=== PATIENT | male | born 1965 | race African-American/Black ===

== ENCOUNTER 2016-08-31 12:34 | Inpatient (IN) | payer OTHER ==
--- NOTE | ~2016-08-31 | DS ---
Unit #: [id number] #: [id number] [facility]: [facility] [id number] [facility] [address] [place] [address] [id number] MR#: [id number] NAME: ZAK CONNER ROOM: [facility]8 Age: 50 Sex: M Admission Date: 08/31/2016 : 1965 Discharge Date: Attending Physician: Tierra Rocha M.D. Primary Care Physician: Generic Doctor Not In System DISCHARGE SUMMARY IDENTIFYING DATA Mr. Bee is a 50-year-old single male, who is a resident of [place], [place], and was self-referred to the hospital on voluntary basis. DISCHARGE DIAGNOSES Psychiatric: Major depressive disorder, recurrent, moderate, without psychotic features; cocaine dependence, moderate. Medical: History of colon cancer, hypertension. Stressors: Moderate psychosocial stressors. HISTORY OF PRESENT ILLNESS Please see initial psychiatric evaluation for details. PAST PSYCHIATRIC HISTORY Please see initial psychiatric evaluation for details. PAST MEDICAL HISTORY Please see initial psychiatric evaluation for details. HOSPITAL COURSE The patient was admitted to the adult psychiatric unit at [facility] and was oriented to the hospital environment. Routine p.r.n. medications were initiated, and he was started back on his home medications and medications were adjusted. He was complaining of persistent depressive symptoms and was initially on Wellbutrin which was then changed to Prozac on his own request and Seroquel was maintained and gradually titrated up to 300 mg at bedtime with good tolerability and therapeutic response followed by which, it was decided that he will be discharged home and will continue treatment on an outpatient basis. DISCHARGE MEDICATIONS Prozac 20 mg a day for depression, Seroquel 300 mg at bedtime for depression. DISCHARGE CONDITION Stable. PROGNOSIS Fair. Dictated by... Tierra Rocha M.D. Unit #: [id number] #: [id number] Patient: ZAK CONNER IAA/modl TD: 09/06/2016 07:00 JOB #: [id number] DISCHARGE SUMMARY Page 1 of 1 X Tierra Rocha MD X DISCHARGE SUMMARY
--- NOTE | ~2016-08-31 | HP ---
Unit #: [id number] #: [id number] Patient: ZAK CONNER [id number] [facility] [address] [place] [address] [id number] I MR#: [id number] NAME: ZAK CONNER ROOM: [facility] Age: 50 Sex: M Admission Date: 08/31/2016 : 1965 Attending Physician: Tierra Rocha M.D. Admitting Physician: Tierra Rocha M.D. Primary Care Physician: Generic Doctor Not In System HISTORY AND PHYSICAL HISTORY OF PRESENT ILLNESS The patient is a 50-year-old man who has been admitted to [facility] for depression and suicidal ideations. PAST MEDICAL HISTORY 1. History of DVT and PE, currently on Xarelto. 2. Hypertension. 3. Pancreatitis. 4. Gastritis. 5. Crohn's disease. 6. PTSD. PAST SURGICAL HISTORY 1. Previous EGD and colonoscopy. 2. Appendectomy. 3. 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 ALLERGIES No known allergies. HOME MEDICATIONS 1. Lisinopril 20 mg 3 in the morning. 2. Xarelto 20 mg p.o. daily. FAMILY HISTORY Diabetes and hypertension. SOCIAL HISTORY The patient endorses tobacco and crack use. REVIEW OF SYSTEMS CONSTITUTIONAL: No fever or chills. HEENT: Denies sore throat, ear pain, or runny nose. CARDIOVASCULAR: Denies chest pain, irregular heart rate, or palpitations. Denies shortness of breath or cough. No hemoptysis. GI: Denies nausea, vomiting, diarrhea, or chronic constipation. ENDOCRINE: Denies increased thirst or urination. Denies recent weight loss or gain. : Denies history of dysuria, frequency, or hematuria. SKIN: Denies any rashes. HEMATOLOGIC: Denies history of increased bleeding or bruising. MUSCULOSKELETAL: Denies any hot, swollen joints. No generalized pain. NEUROLOGIC: The patient denies problems with speech or vision, numbness, Unit #: [id number] #: [id number] Patient: ZAK CONNER or tingling. Denies loss of bowel or bladder control. PHYSICAL EXAMINATION GENERAL: The patient is awake, in no acute distress. VITAL SIGNS: Temperature 98.3, heart rate 62, respirations 16, blood pressure 129/78. He is 5 feet 10 inches and weighs 205 pounds. HEENT: Head is atraumatic, normocephalic. Pupils are equal, round, and reactive. Extraocular movements are intact. No discharge from ears or nose. NECK: Supple. Trachea is midline. HEART: Regular rate and rhythm. LUNGS: Clear. ABDOMEN: Soft, nontender. : Not done. SKIN: Warm, dry, and intact. EXTREMITIES: No clubbing or cyanosis. (1) __ partial amputation on the left. NEUROLOGIC: Cranial nerves II through XII intact, within normal limits. No focal deficits. Sensory and motor function grossly normal. Coordination: Gait normal. Deep tendon reflexes intact. IMPRESSION Psychiatric admission. RECOMMENDATIONS PSYCHIATRIC: Reviewed per psychiatrist. MEDICAL: I see no contraindication to patient participating in the facility activities. MEDICAL PROGNOSIS Fair. MEDICAL CONDITION Stable. Dictated by... Gunjan Weir A.P.R.N. for Cecelia Hernández M.D. AM/laura TD: 09/01/2016 14:04 JOB #: [id number] HISTORY AND PHYSICAL Page 1 of 1 X Gunjan Weir APRN X HISTORY AND PHYSICAL
--- NOTE | ~2016-08-31 | PN ---
Unit #: [id number] #: [id number] Patient: ZAK CONNER [id number] [facility] [address] [place] [address] [id number] I MR#: [id number] NAME: ZAK CONNER ROOM: [facility] Age: 50 Sex: M Admission Date: 08/31/2016 : 1965 Attending Physician: Tierra Rocha M.D. Admitting Physician: Tierra Rocha M.D. Primary Care Physician: Tierra Doctor Not In System [facility] PROGRESS NOTES DATE 09/01/2016 DISCUSSION Mr. Conner is a 50-year-old white male with mood disorder who was seen today and chart was reviewed and case was discussed with the staff. He has been anxious, withdrawn, depressed and rather seclusive to himself and has been expressing feelings of hopelessness and helplessness. Meanwhile, he has been taking medications and tolerating them fairly well with no reported side effects. MENTAL STATUS EXAMINATION Middle-aged white male who was casually dressed with fair personal hygiene and appears to be in no acute distress or discomfort. He was awake and alert on interaction with intact orientation. His mood was anxious with congruent affect. He reports having suicidal ideation but denies any homicidal ideation and also denies any auditory or visual hallucinations. His insight and judgement remains slightly impaired. TREATMENT PLAN 1. Will continue his current medications and treatment protocol. Will monitor his and make further adjustments as needed. 2. Will continue to follow up. Dictated by... Matteo Restrepo/gerhard TD: 09/01/2016 22:13 JOB #: [id number] Unit #: [id number] #: [id number] Patient: ZAK CONNER PROGRESS NOTES Page 1 of 1 X Tierra Rocha MD PROGRESS NOTE
--- NOTE | ~2016-08-31 | DS ---
Unit #: [id number] #: [id number] Patient: ZAK CONNER [id number] [facility] [address] [place] [address] [id number] I MR#: [id number] NAME: ZAK CONNER ROOM: [facility]208 Age: 50 Sex: M Admission Date: 08/31/2016 : 1965 Discharge Date: 09/07/2016 Attending Physician: Tierra Rocha M.D. Primary Care Physician: Generic Doctor Not In System DISCHARGE SUMMARY ADDENDUM Mr. Conner is a 50-year-old male, who was scheduled to be discharged yesterday on 09/06/2016; however, discharge planning had to be canceled after the patient stated that he was not feeling safe and comfortable and had a place to go the next day and as such, he was kept on the unit until the next day when he felt further safe and comfortable, and it was decided that he will be discharged home and will continue treatment on an outpatient basis. DISCHARGE CONDITION Stable. PROGNOSIS Fair. Dictated by... Matteo Restrepo/cris TD: 09/07/2016 06:58 JOB #: [id number] DISCHARGE SUMMARY Page 1 of 1 X Tierra Rocha MD X DISCHARGE SUMMARY
--- NOTE | ~2016-08-31 | PN ---
Unit #: [id number] #: [id number] Patient: ZAK CONNER [id number] [facility] [address] [place] [address] [id number] I MR#: [id number] NAME: ZAK CONNER ROOM: [facility] Age: 50 Sex: M Admission Date: 08/31/2016 : 1965 Attending Physician: Tierra Rocha M.D. Admitting Physician: Tierra Rocha M.D. Primary Care Physician: Tierra Doctor Not In System [facility] PROGRESS NOTES DATE OF SERVICE: 09/02/2016 SUBJECTIVE Mr. Conner is a 50-year-old male with mood disorder, who was seen today and chart was reviewed and case was discussed with the staff. He was seen to be anxious, withdrawn, depressed, and rather seclusive to himself. Meanwhile, he has been cooperative with treatment recommendations and has been taking the medications and tolerating them fairly well with no reported side effects. MENTAL STATUS EXAMINATION Middle-aged male, who was casually dressed with fair personal hygiene, appears to be in no acute distress or discomfort. He was awake and alert on interaction with intact orientation. His mood was anxious and depressed with a congruent affect. He denies any suicidal or homicidal ideations. His insight and judgment remain slightly impaired. TREATMENT PLAN 1. We will continue him on his current treatment protocol. We will monitor his response to medications and make further adjustments as needed. 2. We will continue to follow up. Dictated by... Matteo Restrepo/cris TD: 09/03/2016 13:57 JOB #: [id number] [facility] PROGRESS NOTES Page 1 of 1 X Tierra Rocha MD X PROGRESS NOTE
--- NOTE | ~2016-08-31 | PN ---
Unit #: [id number] #: [id number] Patient: ZAK CONNER [id number] [facility] [address] [place] [address] [id number] I MR#: [id number] NAME: ZAK CONNER ROOM: [facility]210 Age: 50 Sex: M Admission Date: 08/31/2016 : 1965 Attending Physician: Tierra Rocha M.D. Admitting Physician: Tierra Rocha M.D. Primary Care Physician: Generic Doctor Not In System [facility] PROGRESS NOTES DATE OF SERVICE 09/03/2016 SUBJECTIVE Mr. Conner is a 50-year-old male, who was seen today and chart was reviewed, and case was discussed with the staff. He has been anxious, withdrawn, depressed, and seclusive to himself. He has been cooperative with treatment, recommendations, and then has been taking the medications, and tolerating them fairly well with no reported side effects. MENTAL STATUS EXAMINATION Middle-aged male, who was casually dressed with fair personal hygiene, appears to be in no acute distress or discomfort. He was awake and alert with intact orientation. His mood was anxious with a congruent affect. He denies any suicidal or homicidal ideations. His insight and judgment remain slightly impaired. TREATMENT PLAN 1. We will continue his current treatment protocol. We will monitor his response to the medications and make further adjustments as needed. 2. We will continue to follow up. Dictated by... Matteo Restrepo/felixl TD: 09/03/2016 13:53 JOB #: [id number] [facility] PROGRESS NOTES Page 1 of 1 X Tierra Rocha MD PROGRESS NOTE
--- NOTE | ~2016-08-31 | PN ---
Unit #: [id number] #: [id number] Patient: ZAK CONNER [id number] [facility] [address] [place] [address] [id number] I MR#: [id number] NAME: ZAK CONNER ROOM: [facility] Age: 50 Sex: M Admission Date: 08/31/2016 : 1965 Attending Physician: Tierra Rocha M.D. Admitting Physician: Tierra Rocha M.D. Primary Care Physician: Tierra Doctor Not In System [facility] PROGRESS NOTES DATE 09/04/2016 SUBJECTIVE Mr. Conner is a 50-year-old male, who was seen today and chart was reviewed, and case was discussed with the staff. He has been anxious, withdrawn, depressed, and seclusive to himself. He has been cooperative with treatment, recommendations, and then has been taking the medications, and tolerating them fairly well with no reported side effects, though has been complaining of poor sleep at night, persistent depressive symptoms. MENTAL STATUS EXAMINATION Middle-aged male, who was casually dressed with fair personal hygiene, appears to be in no acute distress or discomfort. He was awake and alert with improved attention and concentration. His mood was anxious with a congruent affect. He denies any suicidal or homicidal ideations. His insight and judgment remain slightly impaired. TREATMENT PLAN 1. We will continue him on his current treatment protocol. We will monitor his response to medications and make further adjustments as needed. 2. We will continue to follow up. Dictated by... Matteo Restrepo/cris TD: 09/04/2016 11:56 JOB #: [id number] Unit #: [id number] #: [id number] Patient: ZAK CONNER PROGRESS NOTES Page 1 of 1 X Tierra Rocha MD PROGRESS NOTE
--- NOTE | ~2016-08-31 | PA ---
Unit #: [id number] #: [id number] Patient: ZAK CONNER [id number] [facility] [address] [place] [address] [id number] I MR#: [id number] NAME: ZAK CONNER ROOM: [facility]210 Age: 50 Sex: M Admission Date: 08/31/2016 : 1965 Date of Assessment: 08/31/2016 Attending Physician: Tierra Rocha M.D. Admitting Physician: Tierra Rocha M.D. Primary Care Physician: Generic Doctor Not In System PSYCHIATRIC ASSESSMENT DATE OF SERVICE 08/31/2016. IDENTIFYING DATA Mr. Bee is a 50-year-old, single, male, who is a resident of [place], [place], and was self-referred to the hospital on voluntary basis. CHIEF COMPLAINT "Suicidal ideations." HISTORY OF PRESENT ILLNESS Mr. Conner is a 50-year-old male with a history of mood disorder, who is known to us from previous encounter, was transferred to us from [facility] [place] [facility] where he presented with increasing depression and suicidal ideation and reports that he has had multiple social stressors and that he is thinking of committing suicide and has minimal future orientation and reports that he has a history of violence and appears depressed, during evaluation, was seen to be tearful stating that he wants to get help with depression and that he is currently on no psychotropic medication and has no outpatient followup and he has been using cocaine to self medicate himself and that might be likely contributing towards increasing depression; however, he was voicing active suicidal ideations and was seen to be danger to self and therefore recommendation for inpatient level of care was made. The patient was medically cleared at the [place] [facility] and then transferred to us. SUBSTANCE ABUSE HISTORY The patient reports history of cocaine dependence, but denies any other drug abuse. PAST PSYCHIATRIC HISTORY The patient has had a history of inpatient psychiatric hospitalization in the past, has had history of suicide and overdose, but currently he is not active in any treatment program, and is not taking any psychotropic medications. PAST MEDICAL HISTORY Significant for history of colon cancer and hypertension. ALLERGIES No known medication allergies. Unit #: [id number] #: [id number] Patient: ZAK CONNER PERSONAL AND SOCIAL HISTORY A 50-year-old male, who reports that he is single, unemployed, and lives by himself and has poor social support system. MENTAL STATUS EXAMINATION Middle-aged male, who was casually dressed with fair personal hygiene, appears to be in no acute distress or discomfort. He was awake and alert on interaction with intact orientation to time, place, and person. His mood was anxious and depressed with a congruent affect. His speech was slow and restricted in content. He reports having suicidal ideations, but denies any homicidal ideations, and also denies any auditory or visual hallucinations. His insight and judgment remain significantly impaired. DIAGNOSTIC IMPRESSION Psychiatric: Major depressive disorder, recurrent, moderate, without psychotic features; cocaine dependence, moderate. Medical: History of colon cancer and hypertension. Stressors: Moderate psychosocial stressors. TREATMENT PLAN 1. The patient has presented with a history of substance abuse and mood disorder, and has been decompensating and will need inpatient hospitalization for safety and stabilization. We will start him back on his home medications. We will adjust the medications and monitor response. 2. Supportive therapy was provided to the patient. ESTIMATED LENGTH OF STAY 5 to 7 days. ABILITY TO HELP SELF Limited. WILLINGNESS TO HELP SELF The patient appears to be willing to help self. STRENGTHS 1. Communicative. 2. Cooperative. PROBLEMS 1. Chronic dysphoric symptoms. 2. Chronic chemical dependency. 3. Poor social support system. DISCHARGE CRITERIA This will be contingent upon the patient's ability to show resolution of his depression and anxiety and his ability to stay safe to himself, particularly after discharge from the hospital. Dictated by... Matteo Restrepo/cris Unit #: [id number] #: [id number] Patient: ZAK CONNER TD: 09/01/2016 07:35 JOB #: [id number] PSYCHIATRIC ASSESSMENT Page 1 of 1 X Tierra Rocha MD X PSYCHIATRIC ASSESSMENT
[~2016-08-31 12:34] MED LIST: COUMADIN4 MG PO; DIVALPROEX SOD500 M1 PO; DIVALPROEX SOD500 M2 PO; ELIQUIS5 MG PO; LEXAPRO20 MG PO; LISINOPRIL20 MG PO; NORCO 10-325 TA1 TAB PO; ZYPREXA15 MG PO; [UNRECOGNIZED DRUG - REMARK]
[2016-09-01 09:52] LABS: URINE APPEARANCE CLEAR; URINE BILIRUBIN NEG (NEG); URINE BLOOD NEG (NEG); URINE COLOR YELLOW; URINE GLUCOSE NEG (NEG); URINE KETONE NEG (NEG); URINE LEUKOCYTE ESTERASE NEG (NEG); URINE NITRATE NEG (NEG); URINE PH 8.5 (5-8); URINE PROTEIN NEG (NEG); URINE SPECIFIC GRAVITY 1.015 (1.003-1.035)
== END 2016-09-07 10:39 | disposition home or self-care (01) | DRG 885 ==
LOC: P2S 15:31
PROVIDERS: Psychiatry & Neurology Psychiatry
DX: F33.1 Major depressive disorder, recurrent, moderate (principal); F14.20 Cocaine dependence, uncomplicated; R45.851 Suicidal ideations; I10 Essential (primary) hypertension; Z85.038 Personal history of other malignant neoplasm of large intestine; Z86.718 Personal history of other venous thrombosis and embolism; Z86.711 Personal history of pulmonary embolism; Z79.01 Long term (current) use of anticoagulants; Z89.432 Acquired absence of left foot; Z83.3 Family history of diabetes mellitus; Z82.49 Family history of ischemic heart disease and other diseases of the circulatory system; F17.210 Nicotine dependence, cigarettes, uncomplicated
CPT/HCPCS: 81003

== ENCOUNTER 2016-09-18 12:00 | Inpatient (IN) | payer OTHER ==
--- NOTE | ~2016-09-18 | HP ---
Unit #: [id number] #: [id number] Patient: ZAK CONNER [id number] [facility] [address] [place] [address] [id number] I MR#: [id number] NAME: ZAK CONNER ROOM: [facility] Age: 50 Sex: M Admission Date: 09/18/2016 : 1965 Attending Physician: Tierra Rocha M.D. Admitting Physician: Tierra Rocha M.D. Primary Care Physician: Primary Care Physician No HISTORY AND PHYSICAL ADDENDUM PAST MEDICAL HISTORY History of varicose veins. PAST SURGICAL HISTORY IVC filter placed. PHYSICAL EXAM CARDIOVASCULAR: Rate and rhythm is regular with a 1 to 2/6 systolic murmur. Dictated by... Dafne Banerjee P.A.-C. for Matteo Gamboa/gerhard TD: 09/19/2016 19:54 JOB #: [id number] HISTORY AND PHYSICAL Page 1 of 1 X Dafne Banerjee HISTORY AND PHYSICAL
--- NOTE | ~2016-09-18 | DS ---
Unit #: [id number] #: [id number] Patient: ZAK CONNER [id number] [facility] [address] [place] [address] [id number] I MR#: [id number] NAME: ZAK CONNER ROOM: [facility] Age: 50 Sex: M Admission Date: 09/18/2016 : 1965 Discharge Date: 09/22/2016 Attending Physician: Tierra Rocha M.D. Primary Care Physician: Primary Care Physician No DISCHARGE SUMMARY IDENTIFYING DATA Mr. Conner is a 50-year-old single male, who is a resident of [place], [place], and was transferred to us from [facility]. DISCHARGE DIAGNOSES Psychiatric: Major depressive disorder, recurrent, moderate, without psychotic features. Medical: History of blood clots, hypertension, Crohn disease. Stressors: Mild psychosocial stressors. HISTORY OF PRESENT ILLNESS Please see initial psychiatric evaluation for details. PAST PSYCHIATRIC HISTORY Please see initial psychiatric evaluation for details. PAST MEDICAL HISTORY Please see initial psychiatric evaluation for details. HOSPITAL COURSE The patient [facility] and was oriented to the hospital environment. Routine p.r.n. medications were initiated and he was started back on his home medications. Medications were adjusted and he was closely monitored. He was taking the medications regularly. He was tolerating them fairly well and was able to show a decent therapeutic response and as such, it was decided that he will be discharged home and will continue treatment on an outpatient basis. DISCHARGE MEDICATIONS Remeron 15 mg at bedtime for depression. DISCHARGE CONDITION Stable. PROGNOSIS Fair. Dictated by... Unit #: [id number] #: [id number] Patient: ZAK CONNER Tierra Rocha M.D. IAA/modl TD: 09/22/2016 07:16 JOB #: [id number] DISCHARGE SUMMARY Page 1 of 1 X Tierra Rocha MD X DISCHARGE SUMMARY
--- NOTE | ~2016-09-18 | HP ---
Unit #: [id number] #: [id number] Patient: ZAK CONNER [id number] [place] [address] [id number] I MR#: [id number] NAME: ZAK CONNER ROOM: [facility] Age: 50 Sex: M Admission Date: 09/18/2016 : 1965 Attending Physician: Tierra Rocha M.D. Admitting Physician: Tierra Rocha M.D. Primary Care Physician: Primary Care Physician No HISTORY AND PHYSICAL Zak is a 50 year old admitted to [facility] with depression and verbalizing wanting to hurt himself. He was just discharged from this facility after treatment for the same. Patient was seen and H and P dated 09/01/16 was reviewed. This is current. No changes. Please see H and P dated 09/01/16. Dictated by... Dafne Banerjee P.A.-C. for Matteo Gamboa/gerhard TD: 09/19/2016 17:49 JOB #: [id number] HISTORY AND PHYSICAL Page 1 of 1 X Dafne Banerjee HISTORY AND PHYSICAL
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
--- NOTE | ~2016-09-18 | PN ---
Unit #: [id number] #: [id number] Patient: ZAK CONNER [id number] [facility] [address] [place] [address] [id number] I MR#: [id number] NAME: ZAK CONNER ROOM: [facility] Age: 50 Sex: M Admission Date: 09/18/2016 : 1965 Attending Physician: Tierra Rocha M.D. Admitting Physician: Tierra Rocha M.D. Primary Care Physician: Primary Care Physician Sofía GARCIA PROGRESS NOTES DATE 09/20/2016 DISCUSSION Mr. Conner is a 50-year-old, male with mood disorder who was seen today and chart was reviewed and case was discussed with the staff. He has been anxious, withdraw (1)____ seclusive to himself with blunted affect ____ (:18) interaction reports persistent depressive symptoms with feelings of hopelessness and suicidal ideation. Meanwhile, he has been taking medications and tolerating them fairly well with no reported side effects. MENTAL STATUS EXAM Middle-aged male who was casually dressed with fair personal hygiene, appears to be in no acute distress or discomfort. He was awake and alert on interaction with intact orientation. His mood was anxious with congruent affect. He denies any suicidal or homicidal ideation. His insight and judgement remains slightly impaired. TREATMENT PLAN 1. We will continue him on his current medications and treatment protocol. We will monitor his response and make further adjustments as needed. 2. We will continue to follow up. Dictated by... Matteo Restrepo/trisha TD: 09/21/2016 01:56 JOB #: [id number] Unit #: [id number] #: [id number] Patient: ZAK CONNER PROGRESS NOTES Page 1 of 1 X Tierra Rocha MD PROGRESS NOTE
--- NOTE | ~2016-09-18 | PN ---
Unit #: [id number] #: [id number] Patient: ZAK CONNER [id number] [facility] [address] [place] [address] [id number] I MR#: [id number] NAME: ZAK CONNER ROOM: [facility] Age: 50 Sex: M Admission Date: 09/18/2016 : 1965 Attending Physician: Tierra Rocha M.D. Admitting Physician: Tierra Rocha M.D. Primary Care Physician: Primary Care Physician Sofía WALLS NOTES DATE 09/21/2016 DISCUSSION Mr. Conner is a 50-year-old male who was seen today and chart was reviewed and case was discussed with the staff. He has been anxious, withdrawn and rather seclusive to himself. Meanwhile, he has been taking medications and tolerating them fairly well. MENTAL STATUS EXAMINATION Middle-aged male who was casually dressed with fair personal hygiene and appears to be in no acute distress or discomfort. He was awake and alert with intact orientation. His mood was anxious with congruent affect. He denies any suicidal or homicidal ideation. His insight and judgement remains slightly impaired. TREATMENT PLAN Will continue his current treatment protocol and will monitor his response to the medications and make further adjustments as needed. Dictated by... Matteo Restrepo/gerhard TD: 09/21/2016 23:09 JOB #: [id number] [facility] PROGRESS NOTES Page 1 of 1 X Tierra Rocha MD X PROGRESS NOTE
--- NOTE | ~2016-09-18 | CO ---
Unit #: [id number] #: [id number] Patient: ZAK CONNER [id number] [place] [address] [id number] I MR#: [id number] NAME: ZAK CONNER ROOM: [facility] Age: 50 Sex: M Admission Date: 09/18/2016 : 1965 Attending Physician: Tierra Rocha M.D. Primary Care Physician: Primary Care Physician No Consultation Date: 09/20/2016 CONSULTATION REPORT SUBJECTIVE Zak is a 50-year-old with history of DVTs and varicose veins. At the time of admission, nursing staff reported "inflammation" along his left leg. We have been asked to assess and give recommendations. The patient was seen for his admission H and P and his pertinent past medical history was documented. It was thought that the minimal redness and swelling in his left leg was related to his extensive varicose veins. He had no calf tenderness. He is covered with Xarelto 20 mg daily and has an IVC filter in place. I do not think that this minimal inflammation is related to old or new DVT. Dictated by... Dafne Banerjee P.A.-C. for Matteo Gamboa/cris TD: 09/22/2016 17:26 JOB #: [id number] CONSULTATION REPORT Page 1 of 1 X Dafne Banerjee CONSULTATION REPORT
--- NOTE | ~2016-09-18 | PN ---
Unit #: [id number] #: [id number] Patient: ZAK CONNER [id number] [facility] [address] [place] [address] [id number] I MR#: [id number] NAME: ZAK CONNER ROOM: [facility] Age: 50 Sex: M Admission Date: 09/18/2016 : 1965 Attending Physician: Tierra Rocha M.D. Admitting Physician: Tierra Rocha M.D. Primary Care Physician: Primary Care Physician Sofía WALLS NOTES DATE 09/19/2016 DISCUSSION Mr. Conner is a 50-year-old, male who was seen today and chart was reviewed and case was discussed with the staff. He has been anxious, withdrawn and rather seclusive to himself. Meanwhile he has been cooperative with treatment recommendations. He has been taking medications and tolerating them fairly well with no reported side effects. MENTAL STATUS EXAM Middle-aged male who was casually dressed with fair personal hygiene, appears to be in no acute distress or discomfort. He was awake and alert on interaction with intact orientation. His mood was anxious with congruent affect. He denies any suicidal or homicidal ideation. His insight and judgement remains slightly impaired. TREATMENT PLAN 1. We will continue him on his current medications and treatment protocol. We will monitor his response to the medication and make further adjustments as needed. 2. We will continue to follow up. Dictated by... Matteo Restrepo/trisha TD: 09/20/2016 04:10 JOB #: [id number] Unit #: [id number] #: [id number] Patient: ZAK CONNER PROGRESS NOTES Page 1 of 1 X Tierra Rocha MD PROGRESS NOTE
== END 2016-09-22 12:00 | disposition home or self-care (01) | DRG 885 ==
LOC: P2L 17:29
DX: F33.1 Major depressive disorder, recurrent, moderate (principal); K50.90 Crohn's disease, unspecified, without complications; I10 Essential (primary) hypertension

== ENCOUNTER 2016-10-16 11:48 | Inpatient (IN) | payer OTHER ==
--- NOTE | ~2016-10-16 | PN ---
Unit #: [id number] #: [id number] Patient: ZAK CONNER [id number] [facility] [address] [place] [address] [id number] I MR#: [id number] NAME: ZAK CONNER ROOM: [facility] Age: 50 Sex: M Admission Date: 10/16/2016 : 1965 Attending Physician: Tierra Rocha M.D. Admitting Physician: Tierra Rocha M.D. Primary Care Physician: Primary Care Physician Sofía WALLS NOTES DATE October 20, 2016 DISCUSSION Mr. Conner was seen today and chart was reviewed and the case was discussed with the staff. He has been anxious, restless, and reports not feeling good and has been having some significant anxiety and depression, and does not think the medications are keeping his anxiety under control. Meanwhile, he has been going to therapy groups and has been participating. MENTAL STATUS EXAMINATION Middle-aged male, who was casually dressed with fair personal hygiene and appears to be in no acute distress or discomfort. He was awake and alert with impaired attention and concentration. His mood is anxious with a congruent affect. He denies any suicidal or homicidal ideations. His insight and judgment remain significantly impaired. TREATMENT PLAN 1. We will continue him on his current medications and treatment protocol, and will monitor his response to the medications, and make further adjustments as needed. 2. We will continue to followup. Dictated by... Matteo Restrepo/yasmin TD: 10/20/2016 10:52 JOB #: [id number] Unit #: [id number] #: [id number] Patient: ZAK CONNER PROGRESS NOTES Page 1 of 1 X Tierra Rocha MD PROGRESS NOTE
--- NOTE | ~2016-10-16 | DS ---
Unit #: [id number] #: [id number] Patient: ZAK CONNER [id number] [facility] [place] [address] [id number] I MR#: [id number] NAME: ZAK CONNER ROOM: [facility] Age: 50 Sex: M Admission Date: 10/16/2016 : 1965 Discharge Date: 10/24/2016 Attending Physician: Tierra Rocha M.D. Primary Care Physician: Primary Care Physician No DISCHARGE SUMMARY IDENTIFYING DATA Mr. Conner is a 50-year-old single male, who is a resident of [place], [place], and was transferred to us from [facility] Emergency Room. DISCHARGE DIAGNOSES Psychiatric: Major depressive disorder, recurrent, moderate, without psychotic features. Medical: Hypertension, history of blood clots, Crohn disease. Stressors: Moderate psychosocial stressors. HISTORY OF PRESENT ILLNESS Please see initial psychiatric evaluation for details. PAST PSYCHIATRIC HISTORY Please see initial psychiatric evaluation for details. PAST MEDICAL HISTORY Please see initial psychiatric evaluation for details. HOSPITAL COURSE The patient was admitted to the adult psychiatric unit at [facility] and was oriented to the hospital environment. Routine p.r.n. medications were initiated and medications were adjusted as the patient was consistently complaining of depression and anxiety, and suicidal thoughts and was maintained on Prozac and Remeron as a dual-antidepressant therapy, and Seroquel was added and was gradually Titrated. He was anxious, withdrawn, and rather seclusive to himself, though he was polite and pleasant and cooperative with treatment recommendations and was taking the medications regularly and was tolerating them fairly well and was able to show a decent and therapeutic response with improvement in depression and anxiety and was able to show a therapeutic response to the medications and was denying any further suicidal thoughts, intent, or plan and was willing to continue treatment on an outpatient basis and as such, it was decided that he will be discharged home and will continue treatment on an outpatient basis. DISCHARGE MEDICATIONS Seroquel 50 mg in the morning and in the afternoon and 400 mg at bedtime for mood disorder, Prozac 20 mg a day for depression, and Remeron 15 mg a day for depression. DISCHARGE CONDITION Stable. Unit #: [id number] #: [id number] Patient: ZAK CONNER PROGNOSIS Fair. Dictated by... Matteo Restrepo/cris TD: 10/25/2016 01:31 JOB #: [id number] DISCHARGE SUMMARY Page 1 of 1 X Tierra Rocha MD X DISCHARGE SUMMARY
--- NOTE | ~2016-10-16 | PN ---
Unit #: [id number] #: [id number] Patient: ZAK CONNER [id number] [facility] [address] [place] [address] [id number] MR#: [id number] NAME: ZAK CONNER ROOM: [facility]7 Age: 50 Sex: M Admission Date: 10/16/2016 : 1965 Attending Physician: Tierra Rocha M.D. Admitting Physician: Tierra Rocha M.D. Primary Care Physician: Primary Care Physician Sofía WALLS NOTES DATE OF SERVICE 10/22/2016 DISCUSSION Mr. Conner is a 50-year-old male who was seen today. Chart was reviewed and case was discussed with the staff. He has been anxious, withdrawn, and rather seclusive to himself. Meanwhile, he has been cooperative with the treatment recommendations and has been taking the medications and tolerating them fairly well with no reported side effects. MENTAL STATUS EXAMINATION Middle-aged male who is casually dressed with fair personal hygiene, appears to be in no acute distress or discomfort. He was awake and alert with impaired attention and concentration. His mood is anxious with congruent affect. He denies any suicidal or homicidal ideations. His insight and judgment remain slightly impaired. TREATMENT PLAN 1. We will continue him on his current treatment protocol. We will monitor his response and make further adjustments as needed. 2. We will continue to follow up. Dictated by... Tierra Rocha M.D. IAA/bzg TD: 10/23/2016 11:27 JOB #: [id number] [facility] PROGRESS NOTES Page 1 of 1 X Tierra Rocha MD PROGRESS NOTE
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
--- NOTE | ~2016-10-16 | PN ---
Unit #: [id number] #: [id number] Patient: ZAK CONNER [id number] [facility] [address] [place] [address] [id number] MR#: [id number] NAME: ZAK CONNER ROOM: [facility] Age: 50 Sex: M Admission Date: 10/16/2016 : 1965 Attending Physician: Tierra Rocha M.D. Admitting Physician: Tierra Rocha M.D. Primary Care Physician: Primary Care Physician Sofía GARCIA PROGRESS NOTES DATE 10/18/2016 DISCUSSION Mr. Conner is a 50-year-old white male who was seen today and chart was reviewed and case was discussed with the staff. He has been anxious, withdrawn and rather seclusive to himself. Meanwhile, he has been cooperative with treatment recommendations and has been taking medications and tolerating them fairly well with no reported side effects. MENTAL STATUS EXAMINATION Middle-aged male who was casually dressed with fair personal hygiene and appears to be in no acute distress or discomfort. He was awake and alert with impaired attention and concentration. His mood was anxious with congruent affect. He denies any suicidal or homicidal ideation and also denies any auditory or visual hallucinations. His insight and judgement remains slightly impaired. TREATMENT PLAN 1. Will continue on his current medications and treatment protocol. Will monitor response to medications and make further adjustments as needed. 2. Will continue to follow up. Dictated by... Matteo Restrepo/gerhard TD: 10/18/2016 21:15 JOB #: [id number] Unit #: [id number] #: [id number] Patient: ZAK CONNER [facility] PROGRESS NOTES Page 1 of 1 X Tierra Rocha MD PROGRESS NOTE
--- NOTE | ~2016-10-16 | PN ---
Unit #: [id number] #: [id number] Patient: ZAK CONNER [id number] [facility] [address] [place] [address] [id number] I MR#: [id number] NAME: ZAK CONNER ROOM: [facility]7 Age: 50 Sex: M Admission Date: 10/16/2016 : 1965 Attending Physician: Tierra Rocha M.D. Admitting Physician: Tierra Rocha M.D. Primary Care Physician: Primary Care Physician Sofía GARCIA PROGRESS NOTES DATE 10/19/2016 DISCUSSION Mr. Conner is a 50-year-old, male who was seen today and chart was reviewed and case was discussed with the staff. He has been anxious, withdrawn and rather seclusive to himself. Meanwhile, he has been cooperative with treatment recommendations. He has been taking medications and tolerating them fairly well with no reported side effects. MENTAL STATUS EXAM Middle-aged male who was casually dressed orientation. His mood was anxious with congruent affect. He denies any suicidal or homicidal ideation. His insight and judgement remains slightly impaired. TREATMENT PLAN 1. We will continue him on his current medications and treatment protocol. We will monitor his response and make further adjustments as needed. 2. We will continue to follow up. Dictated by... Matteo Restrepo/trisha TD: 10/19/2016 22:26 JOB #: [id number] Unit #: [id number] #: [id number] Patient: ZAK CONNER PROGRESS NOTES Page 1 of 1 X Tierra Rocha MD PROGRESS NOTE
--- NOTE | ~2016-10-16 | PN ---
Unit #: [id number] #: [id number] Patient: ZAK CONNER [id number] [facility] [address] [place] [address] [id number] MR#: [id number] NAME: ZAK CONNER ROOM: [facility]7 Age: 50 Sex: M Admission Date: 10/16/2016 : 1965 Attending Physician: Tierra Rocha M.D. Admitting Physician: Matteo Restrepo PROGRESS NOTES DATE OF SERVICE: 10/21/2016 SUBJECTIVE Mr. Conner is a 50-year-old male who was seen today and chart was reviewed, and case was discussed with the staff. He has been anxious, withdrawn, depressed, and seclusive to himself. Meanwhile, he has been cooperative with treatment recommendation and has been taking the medications and tolerating them fairly well. MENTAL STATUS EXAMINATION Middle-aged male, who was casually dressed with fair personal hygiene, appears to be in no acute distress or discomfort. He was awake and alert on interaction with intact orientation. His mood was anxious and depressed with a congruent affect. His speech was slow and restricted in content. He denies any suicidal or homicidal ideations, and also denies any auditory or visual hallucinations. His insight and judgment remain slightly impaired. TREATMENT PLAN 1. We will continue him on his current medications and treatment protocol. We will monitor his response to medications and make further adjustments as needed. 2. We will continue to follow up. Dictated by... Matteo Restrepo/cris TD: 10/21/2016 16:18 JOB #: [id number] Unit #: [id number] #: [id number] Patient: ZAK CONNER PROGRESS NOTES Page 1 of 1 X Tierra Rocha MD PROGRESS NOTE
--- NOTE | ~2016-10-16 | PN ---
Unit #: [id number] #: [id number] Patient: ZAK CONNER [id number] [facility] [address] [place] [address] [id number] I MR#: [id number] NAME: ZAK CONNER ROOM: [facility]7 Age: 50 Sex: M Admission Date: 10/16/2016 : 1965 Attending Physician: Tierra Rocha M.D. Admitting Physician: Tierra Rocha M.D. Primary Care Physician: Primary Care Physician Sofía GARCIA PROGRESS NOTES DATE 10/23/2016 DISCUSSION Mr. Conner is a 50-year-old, male who was seen today and chart was reviewed and case was discussed with the staff. He was noticed to be rather anxious, withdrawn and seclusive to himself. Meanwhile, he has not shown any agitation or aggression and has been taking medications and tolerating them fairly well with no reported side effects. MENTAL STATUS EXAM Middle-aged male who was casually dressed with fair personal hygiene, appears to be in no acute distress or discomfort. He was awake and alert with impaired attention and concentration. His mood was anxious with a congruent affect. His speech was slow and restricted in content. His thought processes were disorganized with some looseness of associations and paranoid ideations. His insight and judgement remains significantly impaired. TREATMENT PLAN 1. We will continue him on his current medications and treatment protocol. We will monitor his response to the medication and make further adjustments as needed. 2. We will continue to follow up. Dictated by... Matteo Restrepo/trisha TD: 10/24/2016 04:45 JOB #: [id number] Unit #: [id number] #: [id number] Patient: ZAK CONNER PROGRESS NOTES Page 1 of 1 X Tierra Rocha MD PROGRESS NOTE
--- NOTE | ~2016-10-16 | PN ---
Unit #: [id number] #: [id number] Patient: ZAK CONNER [id number] [facility] [address] [place] [address] [id number] I MR#: [id number] NAME: ZAK CONNER ROOM: [facility]7 Age: 50 Sex: M Admission Date: 10/16/2016 : 1965 Attending Physician: Tierra Rocha M.D. Admitting Physician: Tierra Rocha M.D. Primary Care Physician: Primary Care Physician Sofía GARCIA PROGRESS NOTES DATE October 17, 2016 DISCUSSION Mr. Conner is a 50-year-old male, with mood disorder, who was seen today and chart was reviewed and the case was discussed with the staff. He remains anxious, withdrawn, depressed, and rather seclusive to himself. Meanwhile, he has been taking the medications and tolerating them fairly well with no reported side effects. MENTAL STATUS EXAMINATION Middle-aged male, who was casually dressed with fair personal hygiene and appears to be in no acute distress or discomfort. He was awake and alert with impaired attention and concentration. His mood is anxious with a congruent affect. He denies any suicidal or homicidal ideations. His insight and judgment remain slightly impaired. TREATMENT PLAN 1. We will continue him on his current medications and treatment protocol, and will monitor his response to the medications, and make further adjustments as needed. 2. We will continue to followup. Dictated by... Matteo Restrepo/yasmin TD: 10/18/2016 11:56 JOB #: [id number] Unit #: [id number] #: [id number] Patient: ZAK CONNER BARBARAVENUS PROGRESS NOTES Page 1 of 1 X Tierra Rocha MD PROGRESS NOTE
--- NOTE | ~2016-10-16 | HP ---
Unit #: [id number] #: [id number] Patient: ZAK CONNER [id number] [place] [address] [id number] I MR#: [id number] NAME: ZAK CONNER ROOM: P257 Age: 50 Sex: M Admission Date: 10/16/2016 : 1965 Attending Physician: Tierra Rocha M.D. Admitting Physician: Tierra Rocha M.D. Primary Care Physician: Primary Care Physician No HISTORY AND PHYSICAL HISTORY OF PRESENT ILLNESS Zak is a 50 year old admitted to 2 [facility] with depression and verbalizing wanting to hurt himself. PAST MEDICAL HISTORY 1. A history of DVTs with PEs. 2. High blood pressure. 3. Crohn's disease. 4. History of pancreatitis. 5. History of varicose veins. PAST SURGICAL HISTORY 1. Appendectomy 2. Partial amputation left foot 3. IVC filter placed ALLERGIES No known drug allergies. SOCIAL HISTORY He smokes, uses alcohol and has a history of illicit substance abuse. FAMILY HISTORY Medically noncontributory. REVIEW OF SYSTEMS CONSTITUTIONAL: No fever or chills. HEENT: Denies any sore throat, ear pain or runny nose. CARDIOVASCULAR: Denies chest pain, irregular heart rhythm or palpitations. CHEST: Denies shortness of breath or cough. No hemoptysis. GASTROINTESTINAL: Denies nausea, vomiting, diarrhea or chronic constipation. ENDOCRINE: Denies history of increased thirst or urination. No recent significant weight loss or gain. GENITOURINARY: Denies dysuria, frequency, or hematuria. SKIN: Denies any rashes. HEMATOLOGIC: Denies history of increased bleeding or bruising. MUSCULOSKELETAL: Denies any hot, swollen joints. No generalized muscle pain. NEUROLOGIC: Denies problems with vision or speech. No frequent, severe headaches. No numbness, tingling or weakness in any extremities. Denies loss of bladder or bowel control. Unit #: [id number] #: [id number] Patient: ZAK CONNER CURRENT MEDICATIONS 1. Xarelto 20 mg q day 2. Prozac 20 mg q day 3. Zestril 20 mg q day 4. Protonix 40 mg q day 5. Remeron 15 mg q.h.s. 6. Seroquel 300 mg q.h.s. 7. Milk of Magnesia p.r.n. 8. Maalox p.r.n. 9. Tylenol p.r.n. 10. Nicotine patch 14 mg q day PHYSICAL EXAMINATION GENERAL: Alert, well-nourished, in no apparent distress. VITAL SIGNS: Blood pressure 124/90, heart rate 80, respirations 16, temperature 98.6. WEIGHT: 214 pounds. HEIGHT: 5'11". SKIN: Warm and dry without rash or lesion. HEENT: Normocephalic. TMs not viewed. Oral and nasal passages clear. Conjunctivae clear. Pupils equal, round and reactive to light and accommodation. Extraocular movements intact. NECK: Supple without lymphadenopathy or thyromegaly. HEART: Regular rate and rhythm without murmur. LUNGS: Clear. ABDOMEN: Soft, nontender. : Not done. EXTREMITIES: No evidence of cyanosis, clubbing or edema. Moves all extremities without focal deficit. NEUROLOGICAL: Grossly within normal limits. Cranial Nerves: II: Visual lovett are intact. III, IV AND : Extraocular movements are intact. Pupils are equal, round and reactive to light. V: Facial sensation is grossly normal. VII: Facial movements and expression are normal. VIII: Auditory acuity grossly intact. IX, X: Uvula is midline. Phonation is normal. XI: Patient shrugs shoulders and turns head normally. XII: Tongue protrudes in the midline. Sensory and Motor Function: Sensory and motor sensation is grossly normal. Motor: moves all extremities well. Coordination: Gait is normal. Deep Tendon Reflexes: Intact. IMPRESSION Psychiatric admission RECOMMENDATIONS PSYCHIATRIC: Per psychiatrist. MEDICAL: I see no contraindications to participating in facility's activities. MEDICAL PROGNOSIS Good. MEDICAL CONDITION Stable. Unit #: [id number] #: [id number] Patient: ZAK CONNER Dictated by... Dafne Banerjee P.A.-C. for Matteo Gamboa/trisha TD: 10/17/2016 01:56 JOB #: [id number] HISTORY AND PHYSICAL Page 1 of 1 X Dafne Banerjee X HISTORY AND PHYSICAL
== END 2016-10-24 10:15 | disposition home or self-care (01) | DRG 885 ==
LOC: POF 11:48 → P2L 11:48
DX: F33.1 Major depressive disorder, recurrent, moderate (principal); R45.851 Suicidal ideations; I10 Essential (primary) hypertension; Z89.432 Acquired absence of left foot; F17.200 Nicotine dependence, unspecified, uncomplicated

== ENCOUNTER 2016-11-15 15:50 | Inpatient (IN) | payer OTHER ==
[~2016-11-15] VITALS: Ht 177.8 cm; Wt 102.1 kg
--- NOTE | ~2016-11-15 | PN ---
Unit #: [id number] #: [id number] Patient: ZAK CONNER [id number] [facility] [address] [place] [address] [id number] I MR#: [id number] NAME: ZAK CONNER ROOM: [facility] Age: 50 Sex: M Admission Date: 11/15/2016 : 1965 Attending Physician: Tierra Rocha M.D. Admitting Physician: Tierra Rocha M.D. Primary Care Physician: Primary Care Physician Sofía GARCIA PROGRESS NOTES DATE 11/20/2016 DISCUSSION Zak is a 50-year-old male, seen on 11/20/2016. The patient interviewed, chart reviewed, and obtained information from the nursing staff. The patient was compliant and cooperative. Mood sad and dysphoric, withdrawn, isolative, reports overall making progress. REVIEW OF SYSTEMS Complete review of systems unremarkable. MENTAL STATUS EXAMINATION General appearance: Patient dressed casually. Attention span and concentration, fair. Oriented in time, place, and person. Mood and affect, sad and dysphoric. Speech, monotone. Thought process, concrete. The patient denied any thoughts of harming self or others or any psychotic symptoms. Recent and remote memory, poor. Insight and judgment, poor. DIAGNOSIS Major depressive disorder, recurrent, severe. ASSESSMENT/PLAN Advised to continue with the current medication and therapeutic protocol, and if needed consider further adjustment of medication. Dictated by... Matteo Omalley/yasmin TD: 11/22/2016 09:46 JOB #: [id number] Unit #: [id number] #: [id number] Patient: ZAK CONNER PROGRESS NOTES Page 1 of 1 X Hector Dixon MD PROGRESS NOTE
--- NOTE | ~2016-11-15 | PN ---
Unit #: [id number] #: [id number] Patient: ZAK CONNER [id number] [facility] [address] [place] [address] [id number] I MR#: [id number] NAME: ZAK CONNER ROOM: [facility] Age: 50 Sex: M Admission Date: 11/15/2016 : 1965 Attending Physician: Tierra Rocha M.D. Admitting Physician: Tierra Rocha M.D. Primary Care Physician: Primary Care Physician Sofía GARCIA PROGRESS NOTES DATE 11/23/2016 DISCUSSION Zak is a 50-year-old male, seen on 11/23/2016. The patient interviewed, chart reviewed, and obtained information from the nursing staff. The patient reported still having suicidal ideation, homicidal ideation, therefore, discharge was canceled. Nonspecific suicidal ideation. REVIEW OF SYSTEMS Complete review of systems unremarkable. MENTAL STATUS EXAMINATION General appearance: Patient dressed casually. Attention span and concentration, fair. Oriented in time, place, and person. Mood and affect, sad and depressed. Speech, monotone. Thought process, concrete. The patient reported suicidal ideation, homicidal ideation, nonspecific. Recent and remote memory, poor. Insight and judgment, poor. DIAGNOSIS Mood disorder, NOS. ASSESSMENT/PLAN Advised to cancel discharge, continue with the inpatient programming, if needed consider further adjustment of medication. Dictated by... Matteo Omalley/yasmin TD: 11/24/2016 07:21 JOB #: [id number] Unit #: [id number] #: [id number] Patient: ZAK CONNER PROGRESS NOTES Page 1 of 1 X Hector Dixon MD PROGRESS NOTE
--- NOTE | ~2016-11-15 | CO ---
Unit #: [id number] #: [id number] Patient: ZAK CONNER [id number] [place] [address] [id number] I MR#: [id number] NAME: ZAK CONNER ROOM: [facility] Age: 50 Sex: M Admission Date: 11/15/2016 : 1965 Attending Physician: Tierra Rocha M.D. Primary Care Physician: Primary Care Physician No Consultation Date: 11/16/2016 CONSULTATION REPORT Zak is a 50-year-old admitted with depression and verbalizing wanting to hurt himself. He is known diabetic with history of DVTs. He is maintained on Xarelto and has had an IVF filter placed some years ago. We were asked to see him for consideration of compression socks and because of his history of DVTs. This was discussed under his admission H and P. Please see H and P dated 11/16/2016. Dictated by... Dafne Banerjee PAldoAAldo-Deepak. for Matteo Gamboa/cris TD: 11/16/2016 16:08 JOB #: [id number] CONSULTATION REPORT Page 1 of 1 X Dafne Banerjee CONSULTATION REPORT
--- NOTE | ~2016-11-15 | DS ---
Unit #: [id number] #: [id number] Patient: [facility] [id number] [facility] [address] [place] [address] [id number] I MR#: [id number] NAME: ZAK CONNER ROOM: [facility] Age: 50 Sex: M Admission Date: 11/15/2016 : 1965 Discharge Date: 11/24/2016 Attending Physician: Tierra Rocha M.D. Primary Care Physician: Primary Care Physician No DISCHARGE SUMMARY IDENTIFICATION DATA Mr. Conner is a 50-year-old single male who is known to us from previous multiple encounters and was self-referred to the hospital. DISCHARGE DIAGNOSES PSYCHIATRIC: Major depressive disorder, recurrent, moderate, without psychotic features. Alcohol abuse, moderate. Opiate abuse, moderate. Cannabis abuse, moderate. MEDICAL: Crohn's disease. History of colon cancer. History of pulmonary blood clots. STRESSORS: Mild psychosocial stressors. HISTORY OF PRESENT ILLNESS Same as in initial psychiatric evaluation. PAST PSYCHIATRIC HISTORY Same as in initial psychiatric evaluation. PAST MEDICAL HISTORY Same as in initial psychiatric evaluation. HOSPITAL COURSE The patient was admitted to the adult psychiatric unit at [facility] aida Hester and was oriented to the hospital environment. Routine p.r.n. medications were initiated, and he was started back on his home medications, and medications were adjusted. However, he was seen to be exhibiting attention seeking and med-seeking behavior and was complaining of chest pain and was seen in medical consultation and was sent out of the emergency room with no cardiac abnormality being found. He was then transferred back to us. He was taking the medications regularly and was tolerating them fairly well. However, every time I try to make effort to discharge him from the hospital, he refused to accept the recommendation, and will make comments that he is having suicidal ideations and was seen to be exhibiting some malingering behavior, and as such discharge planning was canceled twice until the patient was no longer seen to be exhibiting any evidence of depression and suicidal thoughts, and as such it was decided that he will be discharged home. We will continue treatment on outpatient basis. CONDITION AT DISCHARGE Stable. Unit #: [id number] #: [id number] Patient: ZAK CONNER PROGNOSIS Fair. Dictated by... Matteo Restrepo/laura TD: 11/24/2016 10:40 JOB #: [id number] DISCHARGE SUMMARY Page 1 of 1 X Tierra Rocha MD DISCHARGE SUMMARY
--- NOTE | ~2016-11-15 | PN ---
Unit #: [id number] #: [id number] Patient: ZAK CONNER [id number] [facility] [address] [place] [address] [id number] I MR#: [id number] NAME: ZAK CONNER ROOM: [facility] Age: 50 Sex: M Admission Date: 11/15/2016 : 1965 Attending Physician: Tierra Rocha M.D. Admitting Physician: Tierra Rocha M.D. Primary Care Physician: Primary Care Physician Sofía WALLS NOTES DATE November 19, 2016 DISCUSSION Mr. Conner is a 50-year-old male, who was seen today and chart was reviewed and the case was discussed with the staff. He has been anxious, withdrawn, and rather seclusive to himself. Meanwhile, he has been cooperative with the treatment recommendations and he has been taking the medications and tolerating them fairly well with no reported side effects. MENTAL STATUS EXAMINATION Middle-aged male, who was casually dressed with fair personal hygiene and appears to be in no acute distress or discomfort. He was awake and alert with intact orientation. His mood is anxious with a congruent affect. He denies any suicidal or homicidal ideations. His insight and judgment remain slightly impaired. TREATMENT PLAN 1. We will continue him on his current medications and treatment protocol, and will monitor his response to the medications, and make further adjustments as needed. 2. We will continue to followup. Dictated by... Matteo Restrepo/yasmin TD: 11/21/2016 05:02 JOB #: [id number] Unit #: [id number] #: [id number] Patient: ZAK CONNER PROGRESS NOTES Page 1 of 1 X Tierra Rocha MD PROGRESS NOTE
--- NOTE | ~2016-11-15 | PN ---
Unit #: [id number] #: [id number] Patient: ZAK CONNER [id number] [facility] [address] [place] [address] [id number] MR#: [id number] NAME: ZAK CONNER ROOM: [facility] Age: 50 Sex: M Admission Date: 11/15/2016 : 1965 Attending Physician: Tierra Rocha M.D. Admitting Physician: Tierra Rocha M.D. Primary Care Physician: Primary Care Physician Sofía GARCIA PROGRESS NOTES DATE 11/18/2016 DISCUSSION Mr. Conner is a 50-year-old, male who was seen today and chart was reviewed and case was discussed with the staff. He has been anxious, withdrawn and rather seclusive to himself. Meanwhile, he has been cooperative with treatment recommendations. He has been taking medications and tolerating them fairly well with no reported side effects. MENTAL STATUS EXAM Middle-aged male who was casually dressed with fair personal hygiene appears to be in no acute distress or discomfort. he was awake and alert with intact orientation. His mood was anxious with congruent affect. He denies any suicidal or homicidal ideations. His insight and judgement remains slightly impaired. TREATMENT PLAN 1. We will continue him on his current medications and treatment protocol. We will monitor his response to the medication and make further adjustments as needed. 2. We will continue to follow up. Dictated by... Matteo Restrepo/trisha TD: 11/20/2016 03:55 JOB #: [id number] Unit #: [id number] #: [id number] Patient: ZAK CONNER BARBARAVENUS PROGRESS NOTES Page 1 of 1 X Tierra Rocha MD PROGRESS NOTE
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
--- NOTE | ~2016-11-15 | PN ---
Unit #: [id number] #: [id number] Patient: ZAK CONNER [id number] [facility] [address] [place] [address] [id number] I MR#: [id number] NAME: ZAK CONNER ROOM: [facility] Age: 50 Sex: M Admission Date: 11/15/2016 : 1965 Attending Physician: Tierra Rocha M.D. Admitting Physician: Tierra Rocha M.D. Primary Care Physician: Primary Care Physician Sofía GARCIA PROGRESS NOTES DATE 11/20/2016 DISCUSSION Zak is a 50-year-old male, seen on 11/20/2016. The patient interviewed, chart reviewed, and obtained information from the nursing staff. The patient was compliant and cooperative. Mood sad and dysphoric, flat affect, and guarded. The patient reported passive SI. REVIEW OF SYSTEMS Complete review of systems unremarkable. MENTAL STATUS EXAMINATION General appearance: Patient dressed casually. Attention span and concentration, fair. Oriented in place and person. Mood and affect, sad and dysphoric. Speech, monotone. Thought process, concrete. The patient reported passive SI, but able to contract for safety. Denied any suicidal or homicidal ideation. Recent and remote memory, poor. Insight and judgment, poor. DIAGNOSIS Major depressive disorder, recurrent, severe. ASSESSMENT/PLAN Advised to continue with the current medication and therapeutic protocol, and if needed consider further adjustment of medication. Dictated by... Matteo Omalley/yasmin TD: 11/22/2016 09:36 JOB #: [id number] Unit #: [id number] #: [id number] Patient: ZAK CONNER PROGRESS NOTES Page 1 of 1 X Hector Dixon MD PROGRESS NOTE
--- NOTE | ~2016-11-15 | PN ---
Unit #: [id number] #: [id number] Patient: ZAK CONNER [id number] [facility] [address] [place] [address] [id number] I MR#: [id number] NAME: ZAK CONNER ROOM: [facility] Age: 50 Sex: M Admission Date: 11/15/2016 : 1965 Attending Physician: Tierra Rocha M.D. Admitting Physician: Tierra Rocha M.D. Primary Care Physician: Primary Care Physician Sofía GARCIA PROGRESS NOTES DATE OF SERVICE 11/22/2016 DISCUSSION Zak is a 50-year-old male. Patient interviewed, chart reviewed. Obtained information from nursing staff. Patient was compliant and cooperative. Mood sad, dysphoric, flat affect, guarded, withdrawn, isolative. Patient reports overall making progress. Complete review of systems unremarkable. MENTAL STATUS EXAMINATION General appearance, patient dressed casually. Attention span and concentration fair. Oriented to time, place and person. Mood and affect labile. Speech monotone. Thought process concrete. Patient denied any thoughts of harming self or others or any psychotic symptoms. Recent and remote memory poor. Insight and judgement poor. DIAGNOSES Major depressive disorder recurrent severe. ASSESSMENT/PLAN Advise to continue with current medication and therapeutic protocol. If needed consider further adjustment of medication and if patient continues to make progress we will consider discharge this week and followup in outpatient program. Dictated by... Matteo Omalley/trisha TD: 11/23/2016 05:05 JOB #: [id number] Unit #: [id number] #: [id number] Patient: ZAK CONNER PROGRESS NOTES Page 1 of 1 X Hector Dixon MD X PROGRESS NOTE
--- NOTE | ~2016-11-15 | PN ---
Unit #: [id number] #: [id number] Patient: ZAK CONNER [id number] [facility] [address] [place] [address] [id number] I MR#: [id number] NAME: ZAK CONNER ROOM: [facility] Age: 50 Sex: M Admission Date: 11/15/2016 : 1965 Attending Physician: Tierra Rocha M.D. Admitting Physician: Tierra Rocha M.D. Primary Care Physician: Primary Care Physician Sofía GARCIA PROGRESS NOTES DATE OF SERVICE 11/17/2016 DISCUSSION Mr. Conner is a 50-year-old male who was seen today. Chart was reviewed and case was discussed with the staff. He has been anxious, withdrawn, and rather seclusive to himself. Meanwhile, he has been cooperative with the treatment recommendations and has been taking the medications and tolerating them fairly well with no reported side effects. MENTAL STATUS EXAMINATION Middle-aged male who is casually dressed with fair personal hygiene, appears to be in no acute distress or discomfort. He was awake and alert on interaction with intact orientation. His mood is anxious and depressed with congruent affect. His speech is slow and goal-directed. He reports having suicidal ideations and denies any homicidal ideation. His insight and judgment remain slightly impaired. TREATMENT PLAN 1. We will continue him on his current medications and treatment protocol. We will monitor his response to the medications and make further adjustments as needed. 2. We will continue to follow up. Dictated by... Matteo Restrepo/laura TD: 11/17/2016 10:45 JOB #: [id number] Unit #: [id number] #: [id number] Patient: ZAK CONNER PROGRESS NOTES Page 1 of 1 X Tierra Rocha MD PROGRESS NOTE
--- NOTE | ~2016-11-15 | EKG ---
PATIENT: ZAK CONNER UNIT #: [id number] Ventricular Rate: 97 BPM Atrial Rate: 97 BPM P-R Interval: 174 ms QRS Duration: 78 ms Q-T Interval: 352 ms QTC Calculation(Bezet): 447 ms P Ackley: 51 degrees Calculated R Ackley: 21 degrees Calculated T Ackley: 30 degrees Diagnosis Line: Normal sinus rhythm Diagnosis Line: Nonspecific ST abnormality Diagnosis Line: Borderline ECG Diagnosis Line: When compared with ECG of 19-NOV-2016 09:59, Diagnosis Line: (unconfirmed) Diagnosis Line: Previous ECG has undetermined rhythm, needs review Diagnosis Line: Confirmed by ANUEL VASQUEZ MD ([id number]) on 11/21/2016 Diagnosis Line: 10:50:56 PM INTERPRETING MD: PEDRO BERUMEN
--- NOTE | ~2016-11-15 | PN ---
Unit #: [id number] #: [id number] Patient: ZAK CONNER [id number] [facility] [address] [place] [address] [id number] I MR#: [id number] NAME: ZAK CONNER ROOM: [facility] Age: 50 Sex: M Admission Date: 11/15/2016 : 1965 Attending Physician: Tierra Rocha M.D. Admitting Physician: Tierra Rocha M.D. Primary Care Physician: Primary Care Physician Sofía WALLS NOTES DATE OF SERVICE 11/16/2016 DISCUSSION Mr. Conner is a 50-year-old male who was seen today. Chart was reviewed and case was discussed with staff. He has been anxious, withdrawn, and rather seclusive to himself. He has been cooperative with treatment recommendations and has been taking the medications and tolerating them fairly well with no reported side effects. MENTAL STATUS EXAMINATION Middle-aged male who is casually dressed with fair personal hygiene, appears to be in no acute distress or discomfort. He was awake and alert with impaired attention and concentration. His mood is anxious with a congruent affect. He appears to be slow and goal-directed. He denies any suicidal or homicidal ideations and also denies any auditory or visual hallucinations. His insight and judgment remain slightly impaired. TREATMENT PLAN 1. We will continue him on his current medications and treatment protocol. We will monitor his response to medications and make further adjustments as needed. 2. We will continue to follow up. Dictated by... Matteo Restrepo/laura TD: 11/16/2016 11:31 JOB #: [id number] Unit #: [id number] #: [id number] Patient: ZAK CONNER PROGRESS NOTES Page 1 of 1 X Tierra Rocha MD PROGRESS NOTE
--- NOTE | ~2016-11-15 | HP ---
Unit #: [id number] #: [id number] Patient: ZAK CONNER [id number] [place] [address] [id number] I MR#: [id number] NAME: ZAK CONNER ROOM: [facility] Age: 50 Sex: M Admission Date: 11/15/2016 : 1965 Attending Physician: Tierra Rocha M.D. Admitting Physician: Tierra Rocha M.D. Primary Care Physician: Primary Care Physician No HISTORY AND PHYSICAL HISTORY OF PRESENT ILLNESS Zak is a 50-year-old admitted to [address] [place] [address] with depression and verbalizing wanting to hurt himself. He has had other admissions to this facility for the same. The patient was seen and H and P dated 10/16/16 was reviewed. This is current. No changes. Please see H and P dated 10/16/16. The patient was requesting compression socks. As on his previous admission, we have told him he needs to follow up with his primary care physician to be fitted for these. At this time, he is having no difficulty in his lower extremities. As noted on his admission H and P from 10/16/16, he had no evidence of edema and this had not changed at time of this admission. He has complained of some generalized aches and pains and he has Tylenol ordered p.r.n. for this. Dictated by... Dafne Banerjee P.A.-C. for Matteo Gamboa/gerhard TD: 11/16/2016 15:23 JOB #: [id number] HISTORY AND PHYSICAL Page 1 of 1 X Dafne Banerjee HISTORY AND PHYSICAL
[2016-11-16 09:44] LABS: BASOPHIL# 0.1 X10e3 (0-0.3); BASOPHIL% 0.8 % (0-2.5); EOSINOPHIL# 0.2 X10e3 (0-0.7); HEMATOCRIT 42.4 % (38.0-50.0); HEMOGLOBIN 14.6 gm/dL (13.0-16.0); LYMPHOCYTE# 3.5 X10e3 (1.0-3.5); MEAN CELL VOLUME 97.1 FL (83-96); MEAN CORPUSCULAR HEMOGLOBIN 33.5 PG (28-34); MEAN CORPUSCULAR HGB CONC 34.5 g/dL (30-36); MEAN PLATELET VOLUME 7.6 FL (6.5-11.5); NEUTROPHIL# 3.7 X10e3 (1.5-7.1); NEUTROPHIL% 43.2 % (40-75); PLATELET COUNT 282 X10e3 (140-420); RED BLOOD COUNT 4.37 X10e (3.90-5.60); RED CELL DISTRIBUTION WIDTH 14.6 % (11.0-15.5); WHITE BLOOD COUNT 8.4 X10e3 (4.0-10.5)
[2016-11-16 09:45] LABS: ALBUMIN SERUM 3.9 g/dL (3.5-5.0); BILIRUBIN,TOTAL 0.9 mg/dL (0.2-2.0); BUN/CREATININE RATIO 13.63; CALCIUM SERUM 9.3 mg/dL (8.4-10.2); CREATININE SERUM 1.1 mg/dL (0.6-1.4); GLOM FILT RATE Estimated 91.5 mL/min (>60); POTASSIUM 4.7 mmol/L (3.5-5.1); PROTEIN TOTAL SERUM 7.6 g/dL (6.0-8.3)
[2016-11-16 09:53] LABS: DIFF IND NO
[2016-11-18 11:46] LABS: URINE APPEARANCE CLEAR; URINE BILIRUBIN NEG (NEG); URINE BLOOD NEG (NEG); URINE COLOR YELLOW; URINE GLUCOSE NEG (NEG); URINE KETONE NEG (NEG); URINE LEUKOCYTE ESTERASE 1+ (NEG); URINE NITRATE NEG (NEG); URINE PROTEIN NEG (NEG); URINE SPECIFIC GRAVITY 1.015 (1.003-1.035); URINE UROBILINOGEN 0.2 MG/DL (NEG)
[2016-11-18 11:52] LABS: U HYALINE CASTS AUWI 0-2 /[LPF]; URBCS1 AUWI 0-2 /[HPF] (0-2); URINE BACTERIA AUWI NEG (NEGATIVE); URINE SQUAMOUS EPITHELIAL CELL NONE SEEN /[HPF]
[2016-11-18 11:58] LABS: AMPHETAMINE NEG (NEG); BARBITURATES NEG (NEG); BENZODIAZEPINES NEG (NEG); COCAINE NEG (NEG); MARIJUANA NEG (NEG); OPIATES NEG (NEG); TRICYCLIC ANTIDEPRESSANTS POS (NEG); U METHADONE NEG (NEG)
== END 2016-11-24 13:05 | disposition home or self-care (01) | DRG 885 ==
LOC: P2L 15:50
PROVIDERS: Psychiatry & Neurology Psychiatry
DX: F33.1 Major depressive disorder, recurrent, moderate (principal); K50.90 Crohn's disease, unspecified, without complications; R45.851 Suicidal ideations; F10.10 Alcohol abuse, uncomplicated; F11.10 Opioid abuse, uncomplicated; F12.20 Cannabis dependence, uncomplicated; Z85.038 Personal history of other malignant neoplasm of large intestine
CPT/HCPCS: 80053; 80307; 81003; 85025